=== PATIENT | male | born 1980 | race African-American/Black ===

== ENCOUNTER → 2023-12-31 11:24 | Outpatient (REF) | payer OTHER, SELFPAY ==
[2023-12-31 19:50] LABS: Hepatitis B Surface Antibody Negative
[2023-12-31 20:11] LABS: Rubella Negative
[2024-01-02 07:36] LABS: Quantiferon Mitogen minus NIL 9.98 IU/mL; Quantiferon NIL 0.02 IU/mL; Quantiferon TB Gold Plus Negative (Negative)
== END ==
LOC: OHS 11:24
PROVIDERS: ATTENDING PHYSICIAN Nurse Practitioner Family
DX: Z23 Encounter for immunization (principal)
CPT/HCPCS: 36415; 86480; 86706; 86735; 86762; 86765; 86787